=== PATIENT | male | born 1965 | race Caucasian/White ===

== ENCOUNTER 2017-01-01 12:12 | Emergency (ER) | payer SELFPAY ==
[2017-01-01] MEDS: HYDROcodone /APAP 10/325 1 EACH TABLET PO ONE ×2 (12:17)
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
[2017-01-01 12:21] VITALS: BP 152/87
[2017-01-01] MEDS: DIPH,PERTUSS(ACELL),TET VAC/PF 0.5 ML DISP.SYRIN IM ONE (13:17)
== END 2017-01-01 13:33 | disposition home or self-care (01) ==
LOC: ED 12:12
DX: S61.311A Laceration without foreign body of left index finger with damage to nail, initial encounter (principal); X58.XXXA Exposure to other specified factors, initial encounter; Y93.9 Activity, unspecified; Y99.9 Unspecified external cause status
CPT/HCPCS: 90471; 90715; 99283